=== PATIENT | male | born 1965 | race Caucasian/White ===

== ENCOUNTER 2016-07-26 09:43 | Inpatient (IN) | payer OTHER ==
[~2016-07-26] VITALS: Ht 182.9 cm; Wt 78.7 kg
[2016-07-26 10:25] LABS: BASOPHILS 0.1 % (0.0-2.0); EOSINOPHILS 0 % (0-7); HEMATOCRIT 44.6 % (42.0-54.0); HEMOGLOBIN 15.4 g/dL (13.5-17.5); IMMATURE GRANULOCYTES 0.2 % (0-5); MCH 30.6 pg (26.0-34.0); MCHC 34.5 g/dL (31.0-37.0); MCV 88.5 fL (80.0-100.0); MEAN PLATELET VOLUME 9.5 fL (7.4-10.4); NEUTROPHILS 82.7 % (40-80); PLATELET COUNT 169 10x3/uL (130-400); RBC 5.04 10x6/uL (4.20-6.10); WBC 14.1 10x3/uL (4.8-10.8)
[2016-07-26 10:43] LABS: ALBUMIN 3.7 g/dL (3.4-5.0); ANION GAP 13.6 mmol/L (8-16); BILIRUBIN - TOTAL 0.47 mg/dL (0.2-1.3); CALCIUM 9.1 mg/dL (8.5-10.1); CARBON DIOXIDE 30.4 mmol/L (21.0-32.0); CREATININE - SERUM 1.1 mg/dL (0.6-1.3); PROTEIN - SERUM 7.5 g/dL (6.4-8.2)
[2016-07-26] MEDS ORDERED: BACLOFEN10 MG PO (15:57)
[2016-07-26] MEDS ORDERED: NEURONTIN600 MG ×2 (15:58→15:59)
[2016-07-26] MEDS ORDERED: REFRESH TEARS15 ML EACH EYE (15:58)
[2016-07-26] MEDS ORDERED: OXYCODONE HCL E20 MG PO (15:59)
[2016-07-26] MEDS ORDERED: PERCOCET 5-3251 TAB PO (16:00)
[2016-07-26 16:01] VITALS: BP 136/82
[2016-07-26] MEDS ORDERED: DESERYL100 MG PO (16:01)
--- NOTE | 2016-07-26 16:17 | NUR ---
PT WAS ADMITTED TO THE FLOOR. PT ON BIPAP. 91% 02. PT CO PAIN 01/09. CALLING NOREEN TINEO FOR PAIN MEDS.
[2016-07-26] MEDS ORDERED: PROAIR HFA8.5 GM INH ×2 (16:20→16:21)
[2016-07-26 17:19] VITALS: BP 93/47
--- NOTE | 2016-07-26 17:32 | NUR ---
TALKED TO BRII IN PHARM. PT OXYCODONE 20MG HE TAKES AT HOME TID PRN FOR PAIN. NOREEN REORDERED IT [id number]. AT THE HOSPITAL BRII SAID WE DONT DO THAT MEDICATION PRN. SO IT HAS TO BE SCHEDULED. PT OK WITH THIS. SAYS HE TAKES IT REGULARLY ANYWAYS. GIVEN PT MEDICATION PER EMAR.
[2016-07-26 17:55] LABS: CKMB 1.9 U/L (0.0-3.6); CREATINE KINASE 295 UL (21-232)
[2016-07-26 17:59] LABS: TROPONIN-I < 0.017 ng/mL (0.000-0.060)
[2016-07-26 21:08] VITALS: BP 119/71; BP 123/89
[2016-07-26 23:20] LABS: CKMB 2.7 U/L (0.0-3.6); CREATINE KINASE 348 UL (21-232); TROPONIN-I < 0.017 ng/mL (0.000-0.060)
--- NOTE | 2016-07-27 00:03 | NUR ---
NO CHANGES NOTED IN ASSESSMENT. NO NEEDS VOICED. CALL LIGHT WITHIN REACH. WILL CONT TO MONITOR.
[2016-07-27 00:07] VITALS: BP 122/75
--- NOTE | 2016-07-27 00:55 | NUR ---
RESTING WITH EYES CLOSED, RESPERATIONS EVEN, NO S/S DISTRESS NOTED.
[2016-07-27 04:15] VITALS: BP 114/81
--- NOTE | 2016-07-27 04:33 | NUR ---
IV TO RIGHT AC OUT, TIP INTACT, COVERED WITH 2X2 AND TAPE. IV RESITED TO LEFT FOREARM 22 GAUGE, SECOND ATTEMPT. PT TOLERATED WELL, NS INFUSING AT 50 CC/HR
[2016-07-27 07:11] LABS: CKMB 1.6 U/L (0.0-3.6); CREATINE KINASE 224 UL (21-232)
[2016-07-27 07:17] LABS: TROPONIN-I < 0.017 ng/mL (0.000-0.060)
--- NOTE | 2016-07-27 07:58 | NUR ---
AM ROUNDING- PT SITTING UP IN BED WITH EYES OPEN RESTING. BIPAP IS CURRENTLY ON PT. ON MONITOR SHOWING SR, HR 64. ALERT AND ORIENTED. ON AT 2L VIA NC. 20G IV SEEN TO RIGHT FOREARM WITH NS RUNNING AT 50CC. PT IS UP AD [place]. NO NEED AT CURRENT TIME. WILL CONTINUE TO MONITOR.
[2016-07-27 08:06] VITALS: BP 103/74
[2016-07-27 10:29] VITALS: Ht 182.9 cm; Wt 78.7 kg
[2016-07-27 11:55] VITALS: BP 144/82
[2016-07-27 12:48] LABS: BASOPHILS 0.3 % (0.0-2.0); EOSINOPHILS 0 % (0-7); HEMATOCRIT 39.5 % (42.0-54.0); HEMOGLOBIN 13.5 g/dL (13.5-17.5); IMMATURE GRANULOCYTES 0.3 % (0-5); LYMPHOCYTES 6.1 % (15-50); MCH 30.5 pg (26.0-34.0); MCHC 34.2 g/dL (31.0-37.0); MCV 89.4 fL (80.0-100.0); MEAN PLATELET VOLUME 9.9 fL (7.4-10.4); NEUTROPHILS 88.3 % (40-80); PLATELET COUNT 166 10x3/uL (130-400); RBC 4.42 10x6/uL (4.20-6.10)
[2016-07-27 12:55] LABS: CALC OSMOLALITY 278 mosm/kg (275-300); CALCIUM 8.7 mg/dL (8.5-10.1); CARBON DIOXIDE 28.6 mmol/L (21.0-32.0); CHLORIDE - SERUM 99 mmol/L (98-107); POTASSIUM - SERUM 4.1 mmol/L (3.5-5.1); SODIUM 137 mmol/L (136-145); UREA NITROGEN 16 mg/dL (7-18); eGFR NON AFRICAN AMERICAN 83 mL/min (90-120)
[2016-07-27 13:04] LABS: GLUCOSE 176 mg/dL (74-106)
[2016-07-27 15:03] VITALS: BP 132/77
--- NOTE | 2016-07-27 17:51 | NUR ---
PT IS SITTING UP IN BED EATING DINNER. NO NEED AT CURRENT TIME. WILL CONTINUE TO MONITOR.
--- NOTE | 2016-07-27 20:09 | NUR ---
TC to [facility] and spoke with Jenny. Patient is on the [facility] list. Dr must speak w/ MOD to request transfer for [facility] services. Have MD call in AM for MD to MD communication.
[2016-07-27 21:26] VITALS: BP 116/71
--- NOTE | 2016-07-27 22:46 | NUR ---
IV SL AND COVERED WITH PLASTIC BAG AND TAPE. PT UP TO SHOWER. WILL CONT TO MONITOR.
--- NOTE | 2016-07-27 23:27 | NUR ---
CALLED TO ROOM, PT NOTICED A TICK EMBEDDED INTO HIS LEFT PELVIS AREA. PT REMOVED TICK HIMSELF, HEAD INTACT. CLEANSED BITE AREA WITH ALCOHOL PAD AND SEARCH PTS BODY FOR PRESENCE OF ANY MORE TICKS, NONE NOTED. INFORMED PT TO WATCH FOR REDDNESS, SWELLING OR STREAKING AND GAVE PT SEVERAL MORE ALCOHOL PADS TO CLEANSE BITE NEEDED. WILL CONT TO MONITOR.
[2016-07-28 00:30] VITALS: BP 120/82
--- NOTE | 2016-07-28 00:54 | NUR ---
CAPACITOR PACK PRESS OPERATOR AT BEDSIDE FOR VS. NEEDS ADDRESSED, CALL LIGHT IN REACH. WILL CONT TO MONITOR.
--- NOTE | 2016-07-28 02:22 | NUR ---
RESTING WITH EYES CLOSED, RESPERATIONS EVEN, NO S/S DISTRESS NOTED.
[2016-07-28 04:30] VITALS: BP 139/92
[2016-07-28 06:23] LABS: BASOPHILS 0.4 % (0.0-2.0); EOSINOPHILS 0 % (0-7); HEMATOCRIT 36.3 % (42.0-54.0); IMMATURE GRANULOCYTES 0.2 % (0-5); LYMPHOCYTES 10.3 % (15-50); MCH 29.9 pg (26.0-34.0); MCHC 33.1 g/dL (31.0-37.0); MCV 90.3 fL (80.0-100.0); MEAN PLATELET VOLUME 9.7 fL (7.4-10.4); MONOCYTES 5.6 % (2-11); NEUTROPHILS 83.5 % (40-80); RBC 4.02 10x6/uL (4.20-6.10)
[2016-07-28 06:26] LABS: PLATELET COUNT 212 10x3/uL (130-400); WBC 11.2 10x3/uL (4.8-10.8)
[2016-07-28 06:39] LABS: CALC OSMOLALITY 282 mosm/kg (275-300); CALCIUM 8.6 mg/dL (8.5-10.1); CHLORIDE - SERUM 102 mmol/L (98-107); CREATININE - SERUM 0.9 mg/dL (0.6-1.3); GLUCOSE 151 mg/dL (74-106); POTASSIUM - SERUM 3.9 mmol/L (3.5-5.1); SODIUM 140 mmol/L (136-145); UREA NITROGEN 14 mg/dL (7-18); eGFR NON AFRICAN AMERICAN > 90 mL/min (90-120)
[2016-07-28 08:13] VITALS: BP 116/75
[2016-07-28 12:43] VITALS: BP 118/72
--- NOTE | 2016-07-28 15:09 | NUR ---
ALERT AND ORIENTED X4. UP AMBULATING IN PATEL. GAIT STEADY. DENIES PAIN OR SOB. EGG CRATE PLACED ON BED PER PATIENT REQUEST. MATTRESS CAUSING BACK PAIN WITHOUT EGG CRATE. SINSUS RHYTHM 68bpm ON TELEMETRY. CONTINUE PLAN OF CARE AND SAFETY PRECAUTIONS.
[2016-07-28 16:00] VITALS: BP 117/75
--- NOTE | 2016-07-28 17:47 | NUR ---
ALERT AND ORIENTED X4. PAIN MANAGEMENT CONTINUED. NO CHANGE. ACTIVITY TOLERATED. CONTINUE PLAN OF CARE AND SAFETY PRECAUTIONS.
--- NOTE | 2016-07-28 19:51 | NUR ---
AMBULATING IN PATEL, GAIT STEADY.
--- NOTE | 2016-07-28 20:02 | NUR ---
Is the patient Alert and Oriented? Yes 0 * How many steps to enter\exit or inside your home? Three 0 * PCP DR Alessandra [facility] at [facility] 0 * Pharmacy [facility] May use [facility] for short term meds when [facility] gives script. 0 * Preadmission Environment Home with Family 0 * ADLs Independent 0 * Equipment Cane 0 * Other Equipment Knee Braces/ Crutches DME from the [facility] 0 * List name and contact numbers for known caregivers / representatives who currently or will assist patient after discharge: [facility]- [phone] 0 * Community resources currently utilized None 0 * Please name any agencies selected above. N/A 0 * Additional services required to return to the preadmission environment? No 0 * Can the patient safely return to the preadmission environment? Yes 0 * Has this patient been hospitalized within the prior 30 days at any hospital? No
--- NOTE | 2016-07-28 20:13 | NUR ---
Plan is for patient to discharge on Friday. CM had been awaiting pulmonary to visit this late PM to determine if he would discharge today or Friday. Patient states pulmonary did visit him this pm. He states the pulmonary MD told him there was still a little something on his xray so he would likely discharge in the AM. Patient wants copy of his records and wants [facility] Request his xrays on disc. Patient denies any discharge needs. His will provide transportation. [facility]. NO DME except cane, crutches and knee braces. Receives physical therapy, neurology services and pain management thru the [facility].
[2016-07-28 21:24] VITALS: BP 132/82
--- NOTE | 2016-07-28 22:37 | NUR ---
DR HILL AT BED SIDE TO SEE PT.
--- NOTE | 2016-07-29 00:23 | NUR ---
CHURN OPERATOR AT BEDSIDE FOR VS. NEEDS ADDRESSED, CALL LIGHT IN REACH. WILL CONT TO MONITOR.
[2016-07-29 00:30] VITALS: BP 110/71
--- NOTE | 2016-07-29 03:19 | NUR ---
RESTING WITH EYES CLOSED, RESPERATIONS EVEN, NO S/S DIATRESS NOTED.
[2016-07-29 04:30] VITALS: BP 116/77
[2016-07-29 05:07] LABS: CALC OSMOLALITY 284 mosm/kg (275-300); CALCIUM 8.5 mg/dL (8.5-10.1); CHLORIDE - SERUM 104 mmol/L (98-107); CREATININE - SERUM 0.9 mg/dL (0.6-1.3); GLUCOSE 126 mg/dL (74-106); POTASSIUM - SERUM 4.5 mmol/L (3.5-5.1); SODIUM 141 mmol/L (136-145); UREA NITROGEN 18 mg/dL (7-18); eGFR NON AFRICAN AMERICAN > 90 mL/min (90-120)
[2016-07-29 05:08] LABS: BASOPHILS 0.2 % (0.0-2.0); EOSINOPHILS 0 % (0-7); HEMOGLOBIN 11.8 g/dL (13.5-17.5); IMMATURE GRANULOCYTES 0.6 % (0-5); LYMPHOCYTES 11.1 % (15-50); MCH 29.8 pg (26.0-34.0); MCHC 32.8 g/dL (31.0-37.0); MCV 90.9 fL (80.0-100.0); MEAN PLATELET VOLUME 9.8 fL (7.4-10.4); MONOCYTES 7.2 % (2-11); NEUTROPHILS 80.9 % (40-80); PLATELET COUNT 256 10x3/uL (130-400); RBC 3.96 10x6/uL (4.20-6.10); RDW 13.1 % (11.5-14.5); WBC 13.2 10x3/uL (4.8-10.8)
[2016-07-29 08:32] VITALS: BP 125/81
[2016-07-29 12:30] VITALS: BP 147/73
--- NOTE | 2016-07-29 14:52 | NUR ---
Patient Name: AVA LABOY Encounter No: [id number] : 1965 Primary Insurance: [employer] Anticipated DC Date: 07-29-2016 Planned Disposition: Home DCP follow-up note: BHAVANA RECEIVED REQUEST FROM DR. GREEN TO EXPLORE POSSIBILITY OF DISCHARGE TODAY WITH [facility] PROVDING PT A NEBULIZER WITH DUONEB TREATMENTS AND A COMBIVENT INHALER OR PROVIDING COMBIVENT INHALER AND ADVAIR OR SYMBICORT INHALER; BOTH OPTIONS INCLUDE NEED FOR DOXYCYCLINE AND PREDNISONE FOR HOME MEDICATIONS. BHAVANA CALLED [facility], AND WAS ADVISED BY DEO THAT A [place] NURSE WOULD CALL CM BACK. BHAVANA RECEIVED CALL FROM [place] NURSE TREVA WHO REPORTED THAT SHE CAN GET DOXYCYCLINE AND PREDNISONE WELL ALBUTEROL INHALER TODAY; NEBULIZER AND INHALERS WILL HAVE TO BE ORDERED FROM [place]. CM TO FAX CHART NOTES TO [phone]. BHAVANA CALLED AND NOTIFIED DR. GREEN WHO REPORTED THAT PT CAN DISCHARGE HOME ON THE ALBUTERAL INHALER 2 PUFFS QID AND PRN WITH THE MEDICATIONS DOXYCYCLINE AND PREDNISONE AND THE OTHER EQUIPMENT / INHALERS CAN BE ORDERED AND DELIVERED TO PT AT HOME. BHAVANA FAXED CHART NOTES TO [place] NURSE TREVA AT [phone] TO ARRANGE NEBULIZER WITH DUONEB TREATMENTS AND A COMBIVENT INHALER OR PROVIDING COMBIVENT INHALER AND ADVAIR OR SYMBICORT INHALER FOR HOME DELIVERY. DR. GREEN RECOMMENDED THE NEBULIZER WITH DUONEB QID WITH THE ALBUTEROL INHALER BEING DECREASED TO PRN WHEN THE NEBUILIZER AND DUONEBS ARE RECEIVED FROM [place]. BHAVANA NOTIFIED PT WHO REPORTS WANTING TO GO HOME TODAY AND REPORTS HE WILL NEED TO LEAVE SOON THE [place] CLOSES IT DOORS AT THE CLINIC AT 4PM. BHAVANA NOTIFIED EVELINA CHAVEZ. Anthony Lund, CASE MANAGEMENT
[2016-07-29] MEDS ORDERED: IPRAT-ALBUT 0.5-3 ML UPD (14:58)
[2016-07-29] MEDS ORDERED: DOXYCYCLINE HY100 M2 PO (15:05)
[2016-07-29] MEDS ORDERED: PREDNISONE10 MG PO (15:05)
[2016-07-29] MEDS ORDERED: SYMBICORT 16010.2 GM INH (15:06)
--- NOTE | 2016-07-29 15:49 | NUR ---
Patient Name: AVA LABOY Encounter No: [id number] : 1965 Primary Insurance: [employer] Anticipated DC Date: 07-29-2016 Planned Disposition: Home DCP follow-up note: CM FAXED DISCHARGE INFORMATION WITH TODAY'S PULMONARY NOTE TO [place] NURSE TREVA AT [phone] TO ARRANGE NEBULIZER WITH DUONEB TREATMENTS AND A COMBIVENT INHALER OR PROVIDING COMBIVENT INHALER AND ADVAIR OR SYMBICORT INHALER FOR HOME DELIVERY. PT NOTIFIED WHO DENIED FURTHER DISCHARGE NEEDS, REPORTS FAMILY TO PICK HIM UP AND HE WILL BE FOLLOWING UP WITH THE [facility]. Anthony Lund, CASE MANAGEMENT
[2016-07-29 16:44] VITALS: BP 139/72
--- NOTE | 2016-07-29 17:12 | NUR ---
ALERT AND ORIENTED X4. DISCHARGE INSTRUCTIONS GIVEN VERBALLY AND WRITTEN. WRITTEN PRESCRIPTIONS PROVIDED. DISCHARGE PAPERS SIGNED ON CHART. DC RT HAND IV TIP INTACT. ESCORT TO RIDE VIA WHEELCHAIR. REMAINS FREE FROM INJURY.
--- NOTE | 2016-08-20 08:17 | EC ---
PATIENT:AVA LABOY DATE OF SERVICE: 07/26/16 SEX: M MEDICAL RECORD: [id number] DATE OF : [birth year] LOCATION:D.M2 D.213 AGE OF PATIENT: 51 ADMISSION DATE: 07/26/16 REFERRING PHYSICIAN: INTERPRETING PHYSICIAN: BRAULIO REYNOSO M.D. ECHOCARDIOGRAM REPORT ECHO CHARGES 4 ECHO COMPLETE CLINICAL DIAGNOSIS: CP/DYSPNEA ECHOCARDIOGRAPHIC MEASUREMENTS (adult normal given) AC root (d.<3.7cm) 3.7 LV Septum d (<1.2 cm> 1.6 Valve Excursion 2.3 LV Septum (systole) 2.4 Left Atria (s.<4.0cm> 3.1 LVPW d(<1.2cm) 1.6 RV (d.<2.3cm) 2.2 LVPW (sytole) 2.5 LV diastole(<5.6CM) 5.1 MV E-F(>70mm/sec) LV systole 2.8 LVOT Diameter 2.2 MV exc.(>10mm) Est.ejection fraction (50-75%) Pericardial Effusion N DOPPLER: LVIT A 53.0 E 93.0 LA RVSP 23.0 LVOT 125 AOP1/2T Asc. Ao 147 RVOT 90.0 RA PA 117 AV Gradient Peak 8.6 AV Mean 4.1 AV Area 3.2 MV Gradient Peak 4.5 MV Mean 1.9 MV Area COMMENTS: Jail Manager: Joaquim GARCIA Staff Psychiatrist:Sheri Reynoso TAPE# PACS DATE OF SERVICE: 07/27/2016 INDICATION: Chest pain. REFERRING PHYSICIAN: Dr. Coffey. DESCRIPTION: Left ventricle demonstrates left ventricular hypertrophy. No wall motion abnormalities are noted. Estimated ejection fraction is 60%. Mitral valve is structurally normal. There is no regurgitation or prolapse seen. Left atrium is normal size. The aortic valve is trileaflet. There is no stenosis or ECHOCARDIOGRAM REPORT [id number] AVA LABOY regurgitation seen. Right ventricle is normal size and function. Tricuspid valve is structurally normal. There is mild regurgitation noted. Right atrium is mildly dilated. There is no pericardial effusion noted. IMPRESSION: 1. Left ventricular hypertrophy with preserved ejection fraction of 60%. 2. Mild tricuspid regurgitation. TRANSINT:[id number] Voice Confirmation ID: [id number] DOCUMENT ID: [id number] BRAULIO REYNOSO M.D. at 0817 CC: [id number] DICTATION DATE: 07/27/161907 TANK INSPECTOR: 07/27/161920 DIS IN 07/29/16 [place] [id number] [place] [id number]
--- NOTE | 2016-08-23 13:49 | CN ---
PATIENT NAME:AVA LABOY MEDICAL RECORD: [id number] : [birth year] LOCATION:[id number] ADMIT DATE: 07/26/16 ACCOUNT: [id number] CONSULTING PHYSICIAN: DEDE HERRING MD REFERRING PHYSICIAN: MAIA HILL M.D. DATE OF CONSULTATION: 07/27/2016 CONSULT REQUESTING PHYSICIAN: Dr. Maia Hill. REASON FOR CONSULTATION: Acute exacerbation of chronic obstructive pulmonary disease and shortness of breath. HISTORY OF PRESENT ILLNESS: Mr. Laboy is a 51-year-old gentleman who got sick 3-4 days ago. He was having some fever, generalized body aches and pains, sinus congestion. He did not check his temperature. He has worsening shortness of breath. His home inhaler was not helping. He was coughing yellow color sputum production. There was no hemoptysis. He was also hearing himself wheezing. REVIEW OF SYSTEMS: Mainly in the history of present illness. PAST MEDICAL HISTORY: 1. COPD. 2. Tobacco dependence syndrome. 3. History of snoring, but the patient has no obstructive sleep apnea by study. PERSONAL AND SOCIAL HISTORY: The patient still an everyday smoker. FAMILY HISTORY: Noncontributory. ALLERGIES: HE IS ALLERGIC TO MERREM. MEDICATIONS: His all other medication on [employer] was reviewed. PHYSICAL EXAMINATION: GENERAL: Now, the patient is lying comfortably. He is not in acute distress. VITAL SIGNS: The blood pressure 144/82, pulse is 85, respiration is 20, temperature is 97.9, T-max was 100, and SpO2 is 98% on BiPAP. HEENT: Conjunctivae pink, sclerae nonicteric. NECK: Supple, no JVD. CHEST: Excursion is minimal on both sides, prolonged expiration with wheezing. HEART: Rhythm regular, normal sound, no murmur. ABDOMEN: Soft, bowel sounds present. No hepatosplenomegaly. RECTAL: Deferred. EXTREMITIES: No cyanosis, no clubbing, and no pedal edema. SKIN: Warm, normal turgor. CENTRAL NERVOUS SYSTEM: The patient is awake and alert. There are no obvious cranial nerve abnormality. The gait was not tested. CHEST RADIOGRAPH: There is hyperinflation, no acute infiltrate. OTHER LABORATORY DATA: CBC: The WBC is 14.1, hemoglobin 15.4, hematocrit 44.6, and platelet count 169. Chemistry: Sodium is 137, potassium is 4, BUN is 15, creatinine is 1.1, and glucose 116. The CK was 348. Other cardiac enzymes were normal. CONSULT REPORT [id number] AVA LABOY IMPRESSION: 1. Acute exacerbation of chronic obstructive pulmonary disease. 2. Tracheobronchitis. 3. Tobacco dependence syndrome. 4. Dyspnea. 5. Leukocytosis secondary to #2. RECOMMENDATION: Start him on doxycycline IV, methylprednisolone IV, albuterol/ipratropium nebulizer, Brovana, and budesonide nebulizer. Add Singulair. Check the alpha 1 level. The patient was counseled to quit smoking. Follow on labs and chest radiograph in the morning. Dr. Hill, once again thanks for involving me in the care of Mr. Laboy. TRANSINT:[id number] Voice Confirmation ID: [id number] DOCUMENT ID: [id number] DEDE HERRING MD at 1349 CC: MAIA HILL M.D. [id number] DICTATION DATE: 07/27/16 1204 CHILD ADOLESCENT PSYCHIATRIST: 07/27/16 1257 DIS IN 07/29/16 [place] [id number] [place] [address]
== END 2016-07-29 17:15 | disposition home or self-care (01) | DRG 190 ==
LOC: D.ER 09:43 → OBSVTIME 14:42 → D.M2 14:42
PROVIDERS: Emergency Medicine; Internal Medicine Pulmonary Disease; ADMIT Family Medicine
DX: J44.0 Chronic obstructive pulmonary disease with (acute) lower respiratory infection (principal); J18.9 Pneumonia, unspecified organism; J44.1 Chronic obstructive pulmonary disease with (acute) exacerbation; M54.9 Dorsalgia, unspecified; F17.200 Nicotine dependence, unspecified, uncomplicated